=== PATIENT | female | born 1995 | race Caucasian/White ===

== ENCOUNTER 2021-01-09 03:50 | Inpatient (IN) | payer BC, SELFPAY ==
[2021-01-09] VITALS (82 sets, daily range): BP systolic 73–146; BP diastolic 45–96; PULSE 71–137; RESP 18; TEMP 36.5–36.6; O2SAT 99–100; BMI 26.2
[2021-01-09] MEDS: ampicillin 2,000 MG in sodium chloride 0.9% (plus) 50 ML 100 MG IV (03:59)
[2021-01-09] MEDS: lactated ringers 1,000 ML 999 ML IV (03:59)
[2021-01-09] MEDS: ondansetron 2 mg/ML SDV 2 mL 4 MG IVP ×2 (03:59→08:09)
[2021-01-09 04:00] LABS: Basophils % 0.3 %; Eosinophils # 0.1 10^3/uL (0.0-0.8); Eosinophils % 0.5 %; Hematocrit 29.5 % (37.0-47.0); Hemoglobin 10.2 g/dL (11.5-15.3); Lymphocytes # 2.5 10^3/uL (0.8-4.8); Lymphocytes % 19.3 %; Mean Corpuscular HGB Conc 34.6 g/dL (30.0-36.0); Mean Corpuscular Hemoglobin 30.7 pg (28.0-34.0); Mean Corpuscular Volume 88.9 fL (81-99); Mean Platelet Volume 8.9 fL (7.4-10.4); Monocytes # 0.9 10^3/uL (0.2-0.9); Monocytes % 6.8 %; Neutrophils # 9.32 10^3/uL (1.8-7.7); Neutrophils % 71.5 %; Nucleated Red Blood Cells % 0 %; Platelet Count 218 10^3/cmm (130-400); Red Blood Count 3.32 10^6/uL (4.1-5.3); Red Cell Distribution Width 12.1 % (12.1-15.1)
[2021-01-09] MEDS: dextrose 5%-lactated ringers 1,000 ML 125 ML IV (04:33)
--- NOTE | 2021-01-09 05:15 | P.ANESASSM_ITS ---
Pre-Anesthetic Assessment Pre-Anesthetic Assessment: Height/Weight: Height 1.65 m Weight 71.668 kg Pulse BP Pulse Ox 88 129/75 99 01/09/21 05:11 01/09/21 05:11 01/09/21 05:09 Preop Diagnosis: Active Labor Familial anesthetic complications: none Was Beta Randy taken within 24 hours: N/A Was Clonidine taken within 24 hours: N/A Last intake: 12/08/201999 Social: Social History: No alcohol and No tobacco Exam: Pre-Anes Outpt Exam: alert, oriented x 3, clear to auscultation bilaterally and regular rate & rhythm Airway: Submandibular: WNL Cervical ROM: WNL MP: 1 Dentition: Full History/ROS: No significant history except as noted Pulmonary: Pulmonary: None reported CV/HEM: CV/HEM: None reported : : None reported Hepatic: Hepatic: None reported GI: GI: None reported Metabolic: Metabolic: None reported Musc/skel: Musc/skel: None reported Neuropsych: Neuropsych: None reported Anesthetic Plan: ASA status: 2 Anesthesia: Regional (specify below) Other: epidural Risk of > 500 ml blood loss (7ml/kg in children): No Meds/Allergies Current Medications: Current Medications Generic Name Dose Route Start Last Admin Trade Name Freq PRN Reason Stop Dose Admin Lactated Ringer's 1,000 mls @ 999 m ls/hr 01/09/21 03:36 01/09/21 03:59 Lactated Ringers IV 999 mls/hr .Q1H1M PRN Administration See label comment s Dextrose/Lactated Ringer's 1,000 mls @ 125 m ls/hr 01/09/21 03:45 01/09/21 04:33 Dextrose 5%-Lact ated Ringers IV 125 mls/hr .Q8H LEILANI Administration Ondansetron HCl 4 mg 01/09/21 03:36 01/09/21 03:59 Ondansetron 2 Mg /Ml Sdv 2 Ml IVP 4 mg Q4H PRN Administration NAUSEA AND VOMITI NG PFSH Anesthesia Female Reproductive History: : 1 Data Anesthesia CBC & Chem 7: 01/09/21 03:53 Other Labs: Laboratory Results - last 48 hr 01/09/21 03:53 WBC 13.0 H RBC 3.32 L Hgb 10.2 L Hct 29.5 L MCV 88.9 MCH 30.7 MCHC 34.6 RDW 12.1 Plt Count 218 MPV 8.9 Neut % (Auto) 71.5 Lymph % (Auto) 19.3 [place] % (Auto) 6.8 Eos % (Auto) 0.5 Baso % (Auto) 0.3 Neut # (Auto) 9.32 H Lymph # (Auto) 2.5 [place] # (Auto) 0.9 Eos # (Auto) 0.1 Baso # (Auto) 0.0 Nucleated RBC % (auto) 0 Nucleated RBCs # 0.0 Cardiac Studies: No Data to Display
--- NOTE | 2021-01-09 05:22 | ANES.PROC ---
Anesthesia Procedures Procedure/Date: 01/09/21 Epidural: Time Out Performed: Yes Consents Signed: Procedure Consent Consent: requested by attending/covering physician and from patient Lumbar Level: L3-L4 Epidural position: sitting Epidural procedure: sterile prep of area, 1% lidocaine to numb the area, negative for paresthesia passed, neg for paresthesia, test dose given, 1.5% xylocaine 1:200k epi, placed PCEA, no systemic response, sterile dressing applied, L.U.D. no apparent complications and 0.2% Ropiavacaine @ mls/hr (13 ml/hr)
[2021-01-09] MEDS: ampicillin 1,000 MG in sodium chloride 0.9% (plus) 50 ML 100 MG IV (07:34)
[2021-01-09] MEDS: oxytocin 30 UNIT/500 ML BAG 600 UNIT IV (10:35)
--- NOTE | 2021-01-09 10:55 | PM.DELIVERY ---
Delivery Note: Date of delivery: January 09, 2021 Pre-Delivery Course: The patient had routine care at [facility]. There were no complications during the . Mother was Rh- and received RhoGam at 28 weeks gestation. After delivery it was confirmed that her group B strep status was negative. Delivery: This is a 25-year-old G1, P0 at 37 weeks 0 days gestation who presented to labor and delivery in active labor with advanced dilation. She received an epidural for pain management. When she was complete complete she had artificial rupture of membranes with clear fluid. Rupture of membranes was less than 2 hours prior to delivery. She delivered a viable male weight 6 pounds 12 ounces Apgars 8 and 9 over an intact perineum. The infant was suctioned at delivery and placed on the mother's chest. The cord was clamped and cut. The placenta was delivered grossly intact and normal to inspection. There were bilateral labial lacerations that were sutured using 3-0 chromic. Mother and were doing well after delivery. A&P Assessment and plan (1) Normal spontaneous vaginal delivery: Status: Acute Coding Level of Care Code Acute Parts Representative for Chg Fwd Diagnoses Normal spontaneous vaginal delivery O80
--- NOTE | 2021-01-09 12:14 | PC.NURSE ---
Eduadro changed and froylan care performed.
--- NOTE | 2021-01-09 13:27 | PC.NURSE ---
Patient ambulated to restroom at this time with no difficulty. Patient had no complaints of nausea, dizziness or feelings of lightheadedness
[2021-01-09] MEDS: ibuprofen 800 mg tablet PO ×2 (14:40→20:21)
--- NOTE | 2021-01-09 16:54 | PC.NURSE ---
To nursery to be with baby.
[2021-01-10] VITALS (7 sets, daily range): BP systolic 118–123; BP diastolic 71–76; PULSE 68–96; TEMP 36.3–36.6
[2021-01-10 03:27] LABS: Hemoglobin 8.5 g/dL (11.5-15.3); Mean Corpuscular Hemoglobin 30.8 pg (28.0-34.0); Mean Corpuscular Volume 90.6 fL (81-99); Mean Platelet Volume 9.1 fL (7.4-10.4); Platelet Count 189 10^3/cmm (130-400); Red Blood Count 2.76 10^6/uL (4.1-5.3); Red Cell Distribution Width 12.5 % (12.1-15.1); White Blood Count 13.8 10^3/uL (4.0-10.0)
--- NOTE | 2021-01-10 10:02 | PM.PN ---
Subjective Subjective: Interval history: day #0-1. Mother is doing well. She is ambulating and tolerating a regular diet. She has average vaginal bleeding and no pain. Vitals/I&O/Wt Last Vital Signs Temp 97.4 F L 01/10/21 04:37 Pulse 76 01/10/21 04:28 Resp 18 01/09/21 11:03 BP 120/72 01/10/21 04:28 Pulse Ox 100 01/09/21 06:09 Weight last 48 hrs Weight 71.668 kg Physical Exam Const: COMMON NORMALS: no acute distress HENMT: COMMON NORMALS: normocephalic and atraumatic HEAD & SCALP: normocephalic and atraumatic FACE & SINUS: normal facial exam Resp: COMMON NORMALS: normal respiratory effort Cardio: COMMON NORMALS: regular rate and regular rhythm RATE: regular rate RHYTHM: regular rhythm Extremity: COMMON NORMALS: normal to inspection GENERAL: No calf tenderness and No edema Urinary Catheter Management^: Mathur: Cath Placed During This Visit: yes, but has since been removed by the nurse Reason for Continuing Indwelling Catheter: Decision to DC Catheter Urinary Catheter Date of Insertion: 01/09/21 Urinary Catheter Time of Insertion: 05:50 Date Urinary Catheter Removed: 01/09/21 Time Urinary Catheter Discontinued: 10:00 Data : 01/10/21 03:15 A&P Assessment and plan (1) Normal spontaneous vaginal delivery: Routine care Status: Acute Attestations Medical Necessity Statement*: Routine care Coding Level of Care Code Acute Rotor Assembler for Eliot Fwjuvenal Diagnoses Normal spontaneous vaginal delivery O80
[2021-01-10] MEDS: prenatal vitamin Capsule 1 CAP PO (10:21)
[2021-01-10] MEDS: docusate sodium 100 mg Capsule PO (10:21)
[2021-01-10] MEDS: ibuprofen 800 mg tablet PO ×2 (10:21→20:59)
--- NOTE | 2021-01-10 12:51 | PC.NURSE ---
note. Since baby fed around 10 am he has been sleeping, He is showing no interest in feeding. Had mom express some colostrum onto a spoon and this was given to him. He still did not rouse to actively feed. Encouraged mom to express at least every 3 hours or more (maybe 1-2 hours) until baby coming to the breast well to feed.
--- NOTE | 2021-01-10 14:55 | ANE.PACU2 ---
Inpatient post-anesthesia follow up: Airway intact: Yes Vital signs: Temperature 97.4 F Pulse Rate 68 Respiratory Rate 18 Blood Pressure 118/76 Pulse Oximetry 100 Oxygen Delivery Me thod Room Air Oxygen Flow Rate Fraction of Inspir ed Oxygen Hydration adequate: Yes Nausea and vomiting: No Pain level: 2 Mental status: Baseline
[2021-01-11 03:24] VITALS: BP 110/75; PULSE 69
[2021-01-11] MEDS: ibuprofen 800 mg tablet PO ×2 (09:43→14:58)
[2021-01-11] MEDS: docusate sodium 100 mg Capsule PO (09:44)
[2021-01-11] MEDS: prenatal vitamin Capsule 1 CAP PO (09:44)
[2021-01-11 09:45] VITALS: BP 126/78; PULSE 76; RESP 16; TEMP 36.1
[2021-01-11 09:46] VITALS: BP 126/78; PULSE 76
--- NOTE | 2021-01-11 12:13 | P.DS_ITS ---
Discharge Providers BILINGUAL RESEARCH INTERVIEWER Date of Admission: 01/09/21 03:50 Date of Discharge: 01/11/21 Attending Provider at Admission: Nimo Palacios MD Attending Provider at Discharge: Nimo Palacios MD Diagnoses at Discharge Discharge Diagnosis (1) Normal spontaneous vaginal delivery: Status: Acute Reason for Visit Reason for Visit: contractions Hospital Course Hospital Course This is a 25-year-old G1 now P1 who presented in active labor at 37 weeks 0 days gestation. She had a normal spontaneous vaginal delivery of a viable male . Mother did well after delivery. On day #2 she was ambulating, tolerating a regular diet, had decreased vaginal bleeding and was comfortable with discharge home. Information Peripartum Data: Infant Delivery Method: Vaginal Physical Exam HENMT: COMMON NORMALS: normocephalic and atraumatic HEAD & SCALP: normocephalic and atraumatic Eye: COMMON NORMALS: Equal, round and reactive pupils present and EOMs intact bilaterally PUPIL: Yes Equal, round and reactive pupils present Chest: COMMONS NORMALS: normal inspection of the chest Resp: COMMON NORMALS: normal respiratory effort and clear to auscultation bilaterally AUSCULTATION: clear to auscultation bilaterally Cardio: COMMON NORMALS: regular rate and regular rhythm RATE: regular rate RHYTHM: regular rhythm GI: COMMON NORMALS: Soft to palpation and non-tender (Fundus firm U- 2) PALPATION: Yes Soft to palpation Extremity: COMMON NORMALS: negative for no pedal edema GENERAL: No calf tenderness Psych: COMMON NORMALS: mental status grossly normal and cooperative Urinary Catheter Management^: Mathur: Cath Placed During This Visit: yes, but has since been removed by the nurse Reason for Continuing Indwelling Catheter: Decision to DC Catheter Urinary Catheter Date of Insertion: 01/09/21 Urinary Catheter Time of Insertion: 05:50 Date Urinary Catheter Removed: 01/09/21 Time Urinary Catheter Discontinued: 10:00 Discharge Data Data Completed and Pending: Labs from last 24 hours 01/09/21 03:53 Blood Type B Negative Rho(D) Type Negative / 0 Antibody Screen Positive Antibody Identific ation Anti-D Vitals: Last Vital Signs Temp 97 F L 01/11/21 09:45 Pulse 76 01/11/21 09:46 Resp 16 01/11/21 09:45 BP 126/78 01/11/21 09:46 Pulse Ox 100 01/09/21 06:09 Discharge Plan Discharge Patient Disposition: Home Condition: Stable Prescriptions: Continued 19 RF: 0 Discharge Orders: Discharge Order (Routine); Ordered 01/11/21 Ordered By: Nimo Palacios Referrals: Nimo Palacios MD [Physician] - 1 month Discharge Diet: Usual diet Discharge Activity: Limit activity as instructed Patient Instructions: Opioid Safety Discharge Attestations BILINGUAL RESEARCH INTERVIEWER Time Spent in Discharge Care*: less than 30 min Coding Level of Care Code Acute [place] Actor for Chg Fwd Diagnoses Normal spontaneous vaginal delivery O80
[2021-01-11 16:12] VITALS: BP 122/68; PULSE 69; RESP 16; TEMP 36.8; O2SAT 99
[2021-01-11 22:45] VITALS: BP 135/88; PULSE 70; RESP 16; TEMP 35.9; O2SAT 98
[2021-01-11 23:04] VITALS: BP 135/88; PULSE 82
== END 2021-01-11 23:07 | disposition home or self-care (01) | DRG 807 ==
LOC: OPOB 03:50 → OBGYN 03:50
PROVIDERS: Admitting Provider Family Medicine; Visit Provider Family Medicine
DX: O70.0 First degree perineal laceration during delivery (principal); Z37.0 Single live birth; Z3A.37 37 weeks gestation of pregnancy
CPT/HCPCS: 36415; 51702; 59025; 59409; 80500; 85025; 85027; 85460; 86850; 86870; 86900; 90384; 99211; J0290; J2405; J2795

== ENCOUNTER → 2022-08-03 13:20 | Outpatient (BNVA) | payer OTHER, SELFPAY | PROVIDERS: Visit Provider Obstetrics & Gynecology | DX: N92.6 Irregular menstruation, unspecified (principal) | CPT/HCPCS: 83036; 83525; 84443 ==

== ENCOUNTER → 2022-08-11 11:07 | Outpatient (BNVA) | payer OTHER, SELFPAY | PROVIDERS: Visit Provider Obstetrics & Gynecology | DX: N92.6 Irregular menstruation, unspecified (principal); N83.8 Other noninflammatory disorders of ovary, fallopian tube and broad ligament | CPT/HCPCS: 76830 ==

== ENCOUNTER → 2022-09-30 09:04 | Outpatient (BNVA) | payer OTHER, SELFPAY | PROVIDERS: Visit Provider Nurse Practitioner Women's Health | DX: N92.6 Irregular menstruation, unspecified (principal) | CPT/HCPCS: 81000; 81025; 84702 ==

== ENCOUNTER → 2022-10-15 12:36 | Outpatient (BNVA) | payer OTHER, SELFPAY | PROVIDERS: Visit Provider Nurse Practitioner Women's Health | DX: Z34.91 Encounter for supervision of normal pregnancy, unspecified, first trimester (principal); Z3A.01 Less than 8 weeks gestation of pregnancy | CPT/HCPCS: 76817 ==

== ENCOUNTER → 2022-10-21 11:30 | Outpatient (BNVA) | payer OTHER, SELFPAY | PROVIDERS: Visit Provider Obstetrics & Gynecology | DX: Z34.90 Encounter for supervision of normal pregnancy, unspecified, unspecified trimester (principal) | CPT/HCPCS: 80307; 84315; 85027; 86592; 86762; 86803; 86850; 86900; 87086; 87340; 87806 ==

== ENCOUNTER → 2023-01-12 14:09 | Outpatient (BNVA) | payer OTHER, SELFPAY | PROVIDERS: Visit Provider Obstetrics & Gynecology | DX: Z34.80 Encounter for supervision of other normal pregnancy, unspecified trimester (principal) | CPT/HCPCS: 76805 ==

== ENCOUNTER → 2023-03-11 14:06 | Outpatient (BNVA) | payer OTHER, SELFPAY | PROVIDERS: Visit Provider Obstetrics & Gynecology | DX: Z34.80 Encounter for supervision of other normal pregnancy, unspecified trimester (principal) | CPT/HCPCS: 82950; 84315; 85025 ==

== ENCOUNTER → 2023-03-30 09:00 | Outpatient (BNVA) | payer OTHER, SELFPAY | PROVIDERS: Visit Provider Nurse Practitioner Women's Health | DX: Z34.80 Encounter for supervision of other normal pregnancy, unspecified trimester (principal); Z67.91 Unspecified blood type, Rh negative | CPT/HCPCS: 86850 ==

== ENCOUNTER → 2023-03-31 09:32 | Outpatient (BNVA) | payer OTHER, SELFPAY | PROVIDERS: Visit Provider Obstetrics & Gynecology | DX: Z34.80 Encounter for supervision of other normal pregnancy, unspecified trimester (principal) | CPT/HCPCS: 76816 ==

== ENCOUNTER → 2023-05-04 09:00 | Outpatient (BNVA) | payer OTHER, SELFPAY | PROVIDERS: Visit Provider Obstetrics & Gynecology | DX: Z34.80 Encounter for supervision of other normal pregnancy, unspecified trimester (principal) | CPT/HCPCS: 84315; 87081 ==

== ENCOUNTER 2023-05-10 00:23 | Inpatient (IN) | payer OTHER, SELFPAY ==
[2023-05-10] VITALS (18 sets, daily range): BP systolic 101–134; BP diastolic 55–85; PULSE 60–91; RESP 15–18; TEMP 36.6–36.9; O2SAT 96–97; BMI 25.9
[2023-05-10 00:33] LABS: Basophils % 0.2 %; Eosinophils % 0.2 %; Hematocrit 29.2 % (36-47); Lymphocytes # 2.5 10^3/uL (0.8-4.8); Lymphocytes % 20.2 %; Mean Corpuscular HGB Conc 33.9 g/dL (30-55); Mean Corpuscular Hemoglobin 29.1 pg (27-33); Mean Corpuscular Volume 85.9 fl (85-98); Mean Platelet Volume 9.3 fL (7.4-10.4); Monocytes # 0.8 10^3/uL (0.2-0.9); Neutrophils # 9.14 10^3/uL (1.8-7.7); Neutrophils % 72.8 %; Nucleated Red Blood Cells % 0 %; Platelet Count 243 10^3/cmm (157-399); Red Cell Distribution Width 11.9 % (12.1-15.1); White Blood Count 12.55 10^3/uL (3.29-11.43)
--- NOTE | 2023-05-10 00:50 | P.HP_ITS ---
Providers/Chief Complaint 2 Admitting Physician: Sultana Wilder DO Primary CONTROLS OPERATOR MOLDED GOODS: Dr. David Short Chief Complaint: contractions HPI CONTROLS OPERATOR MOLDED GOODS History of Present Illness Sean Eid is a 28 year old female G2, P1 at 37 weeks gestation with SHANIKA 06/01/2023. Patient presented to labor and delivery with complaints of contraction onset 8 PM today. Patient denied any complications during care with this or the previous delivery. Patient was placed on external monitor with heart tones 130s and contractions noted to be every 1 to 2 minutes. Pelvic exam was performed --cervix?complete/+1 vertex presentation with bloody show noted. As nursing staff placed IV and started IV fluids, a variable deceleration was noted in the heart tones, patient was instructed to push and with several contractions the baby is vertex rotated and descended to the perineum. The membranes were noted to be intact and AROM was performed with clear fluid noted. Delivery of a viable male was performed via , spontaneous cry was noted. After delaying cord clamping, the cord was clamped and cut. The baby then placed on the mother's abdomen for bonding. Nursing staff was present for assessment and evaluation. A three-vessel cord was noted Cord pH and cord blood was drawn and handed off. The uterine was massaged and the placenta presented in a Judd presentation with trailing membranes. Pitocin solution was started in a bolus manner. The uterus was massaged and firmed well. The uterus and vaginal vault were explored and few clots removed. The vaginal vault was examined and no lacerations noted. Mother and infant are both in stable and satisfactory condition.. Review of Systems 2 General: Reports: 10 or more systems reviewed and unremarkable except in HPI and below Medications/Allergies Home Medications Medication Instructions Recorded Confirmed Last Taken Type prenat.vits,louise,btz-caen-ufteu 1 tab PO DAILY 09/30/22 05/04/23 Unknown History Allergies Allergy/AdvReac Type Severity Reaction Status Date / Time No Known Allergies Allergy Verified 05/04/23 08:41 PFSH CONTROLS OPERATOR MOLDED GOODS 2 PFSH: Medical History No pertinent past medical history neghx: htn,dm,thyroid,dvt/pe PCP: None Surgical History No pertinent past surgical history Family History Grandfather Hypertension maternal Denies family history of Colon cancer Ovarian cancer Diabetes Heart disease Hypercholesteremia Breast cancer Uterine cancer Thyroid disease Stroke Social History Substance/Drug Use: never History History History 2 1 Term 1 0 Miscarriages/Ectopic 0 Living Children 1 Care SHANIKA Calculator 2 Estimated Delivery Date Method Current WG Current Estimate 06/01/23 Ultrasound #1 36w 6d Expected Delivery Route/Plan Vaginal Vitals/I&O/Wt Last Vital Signs Pulse 91 05/10/23 00:46 BP 119/74 05/10/23 00:46 Physical Exam 2 HENMT: COMMON NORMALS: normocephalic and atraumatic HEAD & SCALP: n ormocephalic and atraumatic Eye: COMMON NORMALS: Equal, round and reactive pupils present and EOMs intact bilaterally PUPIL: Yes Equal, round and reactive pupils present Chest: COMMONS NORMALS: normal inspection of the chest Resp: COMMON NORMALS: normal respiratory effort and clear to auscultation bilaterally AUSCULTATION: clear to auscultation bilaterally Cardio: COMMON NORMALS: regular rate and regular rhythm RATE: regular rate RHYTHM: regular rhythm GI: COMMON NORMALS: Soft to palpation and non-tender (Fundus firm U- 2) P ALPATION: Yes Soft to palpation Extremity: COMMON NORMALS: negative for no pedal edema GENERAL: No calf tenderness Psych: COMMON NORMALS: mental status grossly normal and cooperative Urinary Catheter Management: Mathur: Cath Placed During This Visit: yes, but has since been removed by the nurse Reason for Continuing Indwelling Catheter: Decision to DC Catheter Urinary Catheter Date of Insertion: 01/09/21 Urinary Catheter Time of Insertion: 05:50 Date Urinary Catheter Removed: 01/09/21 Time Urinary Catheter Discontinued: 10:00 Data 05/10/23 00:25 Results Labs OB ([facility]): 2 Obstetrics US 03/31/23 Blood Type B Negative 10/21/22 Antibody Screen Negative 03/30/23 Hct 29.2 % (36-47) L 05/10/23 Hgb 9.90 g/dL (11.27-16.99) L 05/10/23 Rho(D) Type Negative 10/21/22 Plt Count 243 10^3/cmm (157-399) 05/10/23 Hep Bs Antigen Non-reactive (Nonreactive) 10/21/22 Hepatitis C Antibody Non-reactive (Nonreactive) 10/21/22 Rubella IgG Antibody 27.4 IU/mL (0.0-10.0) H 10/21/22 RPR Nonreactive (Nonreactive) 10/21/22 HIV 1&2 Ab & HIV 1 Ag Non-reactive (Non-Reactiv) 10/21/22 TSH 1.07 uIU/mL (0.27-4.20) 08/03/22 Glucose 1 Hr 50 gm 94 mg/dL (85-140) 03/11/23 Hemoglobin A1c 4.6 % (4.0-6.0) 08/03/22 Ser , Semi-Qnt 5064.00 mIU/mL 09/30/22 HCG, Qual Positive (Negative) H 09/30/22 Urine Opiates Screen Negative ng/mL (Negative) 10/21/22 Ur Barbiturates Screen Negative ng/mL (Negative) 10/21/22 Ur Phencyclidine Scrn Negative ng/mL (Negative) 10/21/22 Ur Amphetamines Screen Negative ng/mL (Negative) 10/21/22 U Benzodiazepines Scrn Negative ng/mL (Negative) 10/21/22 Urine Cocaine Screen Negative ng/mL (Negative) 10/21/22 U Marijuana (THC) Screen Negative ng/mL (Negative) 10/21/22 Micro Urine Specimen 10/21/22 A&P Assessment and plan (1) 37 weeks gestation of : (2) Active labor: Admit to labor and delivery for management of labor (3) Anemia: (4) Supervision of other normal : (5) Rh negative status during : (6) Encounter for supervision of other normal , first trimester: Attestations 2 Medical Necessity Statement*: Admission to labor and delivery for management of labor at 37 weeks gestation. Coding Level of Care Code Acute Code for Chg Fwd Diagnoses 37 weeks gestation of Z3A.37 Active labor Anemia D64.9 Supervision of other normal Z34.80 Rh negative status during O26.899; Z67.91 Encounter for supervision of other normal , first trimester Z34.81
--- NOTE | 2023-05-10 01:05 | P.PCNOB_ITS ---
Delivery Note: Date of delivery: May 10, 2023 Pre-delivery diagnoses: 37 weeks gestation Post-delivery diagnoses: 37 weeks gestation-delivered Anemia Procedure: ?viable male 6 pounds 15 ounces Delivering Physician: Dr. Sultana Wilder Estimated blood loss (mL): 300 Delivery: 28-year-old female G2, P1 at 37 weeks [facility] with SHANIKA 06/01/2023 presented to labor and delivery and with initial exam was noted to be complete +1 vertex. Patient delivered a viable male via over intact perineum. The vertex presented in a OA presentation followed by the anterior and posterior shoulders with the remainder the baby's body to follow. After delayed cord clamping the cord was cut and the baby placed on the mother's abdomen for bonding. Arterial pH and cord blood obtained and handed off. The uterus was massaged and the placenta presented in a Judd presentation with trailing membranes. The uterus and vaginal vault were explored few clots removed and no lacerations noted. 8/9, weight 6 pounds 15 ounces. Anesthesia?none. Post-Delivery Status: Stable History History History 2 Term 1 0 Miscarriages/Ectopic 0 Living Children 1 A&P Assessment and plan (1) 37 weeks gestation of : (2) Active labor: (3) Anemia: (4) Supervision of other normal : (5) Rh negative status during : (6) Encounter for supervision of other normal , first trimester: Plan Admit and began care. Coding Level of Care Code Acute Code for Chg Fwd Diagnoses 37 weeks gestation of Z3A.37 Active labor Anemia D64.9 Supervision of other normal Z34.80 Rh negative status during O26.899; Z67.91 Encounter for supervision of other normal , first trimester Z34.81
[2023-05-10] MEDS: docusate sodium 100 mg Capsule PO ×2 (08:18→20:27)
[2023-05-10] MEDS: ibuprofen 800 mg tablet PO ×2 (08:19→20:27)
[2023-05-10] MEDS: prenatal vitamin Capsule 1 CAP PO (08:19)
--- NOTE | 2023-05-10 13:07 | P.PN_ITS ---
ROD AND TUBE STRAIGHTENER Subjective 2 Subjective: Interval history: 28-year-old female G2, P2 s/p viable male. Patient is doing well denies headache blurred vision chest pain or shortness of breath. Is ambulating, and tolerating a regular diet and voiding without difficulties. Patient is breast-feeding, encouraged continuation of vitamins and iron which she has at home as well as a diet with increased fiber fruits veggies and increase hydration. Patient understands. Discussion of excessive vaginal bleeding with instructions to come to the emergency room if this occurs. Labor: Station: 0 Amniotic Membrane Status: Intact Monitor Mode: P alpation Contraction Pattern: Regular Vitals/I&O/Wt Last Vital Signs Temp 98.0 F 05/10/23 10:56 Pulse 83 05/10/23 10:56 Resp 16 05/10/23 10:56 BP 132/84 05/10/23 10:56 Pulse Ox 97 05/10/23 10:56 O2 Del Method Room Air 05/10/23 10:56 Weight last 48 hrs Weight 70.76 kg Physical Exam 2 Back/Pelvis: OTHER: Abdomen?soft, fundus firm below umbilicus. Lochia light. Extremity: COMMON NORMALS: normal to inspection, no calf tenderness and no pedal edema Urinary Catheter Management: Mathur: Cath Placed During This Visit: yes, but has since been removed by the nurse Reason for Continuing Indwelling Catheter: Decision to DC Catheter Urinary Catheter Date of Insertion: 01/09/21 Urinary Catheter Time of Insertion: 05:50 Date Urinary Catheter Removed: 01/09/21 Time Urinary Catheter Discontinued: 10:00 Data 05/10/23 00:25 A&P Assessment and plan (1) Spontaneous vaginal delivery: Plan. care (2) 37 weeks gestation of : (3) Anemia: Check PP CBC (4) Supervision of other normal : (5) Rh negative status during : Attestations 2 Medical Necessity Statement*: care Coding Level of Care Code Acute Code for Chg Fwd Diagnoses Spontaneous vaginal delivery O80 37 weeks gestation of Z3A.37 Anemia D64.9 Supervision of other normal Z34.80 Rh negative status during O26.899; Z67.91
[2023-05-10 13:20] LABS: Hematocrit 25.5 % (36-47); Mean Corpuscular HGB Conc 34.5 g/dL (30-55); Mean Corpuscular Hemoglobin 29.7 pg (27-33); Mean Corpuscular Volume 86.1 fl (85-98); Mean Platelet Volume 9.3 fL (7.4-10.4); Platelet Count 220 10^3/cmm (157-399); Red Blood Count 2.96 10^6/uL (3.85-5.65); Red Cell Distribution Width 12.1 % (12.1-15.1); White Blood Count 11.77 10^3/uL (3.29-11.43)
[2023-05-11 05:00] VITALS: BP 128/83; PULSE 72; RESP 18; TEMP 36.6; O2SAT 98
[2023-05-11] MEDS: ibuprofen 800 mg tablet PO (09:20)
[2023-05-11] MEDS: prenatal vitamin Capsule 1 CAP PO (09:20)
[2023-05-11] MEDS: docusate sodium 100 mg Capsule PO (09:21)
[2023-05-11 10:45] VITALS: BP 121/79; PULSE 91; RESP 18; TEMP 37.1; O2SAT 98
--- NOTE | 2023-05-11 14:05 | PM.OBGYDC ---
Discharge Providers [employer] Date of Admission: 05/10/23 00:23 Date of Discharge: 05/11/23 Attending Provider at Admission: Sultana Wilder DO Attending Provider at Discharge: David Short MD Consults: none Primary [employer]KER: David Short MD Diagnoses at Discharge Discharge Diagnosis (1) Spontaneous vaginal delivery: Details from hospital stay: patient presented with spontaneous labor delivered vaginally without any complications had normal course discharged on day #1 Status: Inactive (2) 37 weeks gestation of : Status: Inactive (3) Anemia: Status: Acute (4) Supervision of other normal : Status: Acute (5) Rh negative status during : Details from hospital stay: received rhogam after delivery Status: Inactive Reason for Visit Reason for Visit: contractions Brief History: 28 y.o. presented at 37 weeks with active labor Hospital Course Hospital Course patient presented with spontaneous labor delivered vaginally without any complications had normal course discharged on day #1 Information Peripartum Data: Infant Delivery Method: Vaginal Laceration description: None Episiotomy description: None Physical Exam Const: COMMON NORMALS: no acute distress, patient oriented x3, healthy appearing and alert Resp: COMMON NORMALS: normal respiratory effort and clear to auscultation bilaterally AUSCULTATION: clear to auscultation bilaterally Cardio: COMMON NORMALS: regular rate and regular rhythm RATE: regular rate RHYTHM: regular rhythm GI: COMMON NORMALS: Normal to inspection, nondistended, normoactive bowel sounds present and non-tender Extremity: COMMON NORMALS: no calf tenderness Neuro: COMMON NORMALS: patient oriented x3 SENSORIUM/ORIENTATION: Yes alert Urinary Catheter Management: Mathur: Cath Placed During This Visit: yes, but has since been removed by the nurse Reason for Continuing Indwelling Catheter: Decision to DC Catheter Urinary Catheter Date of Insertion: 01/09/21 Urinary Catheter Time of Insertion: 05:50 Date Urinary Catheter Removed: 01/09/21 Time Urinary Catheter Discontinued: 10:00 History History History 2 Term 1 0 Miscarriages/Ectopic 0 Living Children 1 Discharge Data Studies Completed and Pending Laboratory Results WBC 11.77 10^3/uL (3.29-11.43) H 05/10/23 13:00 RBC 2.96 10^6/uL (3.85-5.65) L 05/10/23 13:00 Hgb 8.80 g/dL (11.27-16.99) L 05/10/23 13:00 Hct 25.5 % (36-47) L 05/10/23 13:00 MCV 86.1 fl (85-98) 05/10/23 13:00 MCH 29.7 pg (27-33) 05/10/23 13:00 MCHC 34.5 g/dL (30-55) 05/10/23 13:00 RDW 12.1 % (12.1-15.1) 05/10/23 13:00 Plt Count 220 10^3/cmm (157-399) 05/10/23 13:00 MPV 9.3 fL (7.4-10.4) 05/10/23 13:00 Neut % (Auto) 72.8 % 05/10/23 00:25 Lymph % (Auto) 20.2 % 05/10/23 00:25 Roberts % (Auto) 6.0 % 05/10/23 00:25 Eos % (Auto) 0.2 % 05/10/23 00:25 Baso % (Auto) 0.2 % 05/10/23 00:25 Neut # (Auto) 9.14 10^3/uL (1.8-7.7) H 05/10/23 00:25 Lymph # (Auto) 2.5 10^3/uL (0.8-4.8) 05/10/23 00:25 Roberts # (Auto) 0.8 10^3/uL (0.2-0.9) 05/10/23 00:25 Eos # (Auto) 0.0 10^3/uL (0.0-0.8) 05/10/23 00:25 Baso # (Auto) 0.0 10^3/uL (0.0-0.1) 05/10/23 00:25 Nucleated RBC % (auto) 0 % 05/10/23 00:25 Nucleated RBCs # 0.0 /100WBC 05/10/23 00:25 Blood Type B Negative 05/10/23 00:25 Rho(D) Type Negative 05/10/23 00:25 Antibody Screen Positive 05/10/23 00:25 Antibody Identification Anti-D 05/10/23 00:25 Screen Negative (Negative) 05/10/23 13:00 Procedures Performed vaginal delivery Vitals Last Vital Signs Temp 98.8 F 05/11/23 10:45 Pulse 91 05/11/23 10:45 Resp 18 05/11/23 10:45 BP 121/79 05/11/23 10:45 Pulse Ox 98 05/11/23 10:45 O2 Del Method Room Air 05/11/23 10:45 Results Labs OB ([facility]): Obstetrics US 03/31/23 Blood Type B Negative 05/10/23 Antibody Screen Positive 05/10/23 Hct 25.5 % (36-47) L 05/10/23 Hgb 8.80 g/dL (11.27-16.99) L 05/10/23 Rho(D) Type Negative 05/10/23 Plt Count 220 10^3/cmm (157-399) 05/10/23 Hep Bs Antigen Non-reactive (Nonreactive) 10/21/22 Hepatitis C Antibody Non-reactive (Nonreactive) 10/21/22 Rubella IgG Antibody 27.4 IU/mL (0.0-10.0) H 10/21/22 RPR Nonreactive (Nonreactive) 10/21/22 HIV 1&2 Ab & HIV 1 Ag Non-reactive (Non-Reactiv) 10/21/22 TSH 1.07 uIU/mL (0.27-4.20) 08/03/22 Glucose 1 Hr 50 gm 94 mg/dL (85-140) 03/11/23 Hemoglobin A1c 4.6 % (4.0-6.0) 08/03/22 Ser , Semi-Qnt 5064.00 mIU/mL 09/30/22 HCG, Qual Positive (Negative) H 09/30/22 Urine Opiates Screen Negative ng/mL (Negative) 10/21/22 Ur Barbiturates Screen Negative ng/mL (Negative) 10/21/22 Ur Phencyclidine Scrn Negative ng/mL (Negative) 10/21/22 Ur Amphetamines Screen Negative ng/mL (Negative) 10/21/22 U Benzodiazepines Scrn Negative ng/mL (Negative) 10/21/22 Urine Cocaine Screen Negative ng/mL (Negative) 10/21/22 U Marijuana (THC) Screen Negative ng/mL (Negative) 10/21/22 Micro Urine Specimen 10/21/22 Discharge Plan Discharge Patient Disposition: Home Condition: Stable Prescriptions: Continued prenat.vits,louise,dvb-[id number] Tablet 1 tab PO DAILY Discharge Orders: Discharge Order (Routine); Ordered 05/11/23 Ordered By: David Short Referrals: David Short MD [Physician] - 06/21/23 10:45 am Discharge Diet: Usual diet Discharge Activity: Increase activity as tolerated Patient Instructions: Depression (DC), Iron Rich Diet (DC), Preeclampsia and Eclampsia After Delivery (GEN), Breast Care for the Mother (DC), OB Care at Home, Opioid Safety, Abnormal Bleeding Discharge Attestations [employer] Time Spent in Discharge Care*: less than 30 min Coding Level of Care Code Acute Code for Chg Fwd Diagnoses Spontaneous vaginal delivery O80 37 weeks gestation of Z3A.37 Anemia D64.9 Supervision of other normal Z34.80 Rh negative status during O26.899; Z67.91 Time Spent (min) 20
== END 2023-05-11 10:45 | disposition home or self-care (01) | DRG 807 ==
LOC: OPOB 00:24 → OBGYN 00:24
PROVIDERS: Admitting Provider Obstetrics & Gynecology; Visit Provider Obstetrics & Gynecology
DX: O99.02 Anemia complicating childbirth (principal); Z37.0 Single live birth; D64.9 Anemia, unspecified; Z3A.37 37 weeks gestation of pregnancy; O26.893 Other specified pregnancy related conditions, third trimester; Z67.21 Type B blood, Rh negative
CPT/HCPCS: 36415; 36430; 59025; 59409; 80503; 85025; 85027; 85460; 86850; 86870; 86900; 90384; 98960; 99211